=== PATIENT | female | born 1930 | race Caucasian/White ===

== ENCOUNTER 2017-02-23 07:48 | Inpatient (IN) | payer MEDICARE, MEDICAID ==
[~2017-02-23] VITALS: Ht 167.6 cm; Wt 104.8 kg
[~2017-02-23 07:48] MED LIST: CHOL100018 PO; DOCU100C PO; GABA300C10 PO; HYDR-3307 PO; IBUP200T5 PO; OXYB10TA6 PO
[2017-02-23] MEDS ORDERED: SODIUM CHLORIDE 0.9% 1,000ML IVBOLUS ONE (08:30)
[2017-02-23] MEDS ORDERED: SODIUM CHLORIDE FLUSH 10ML SYR IVF ONE (08:30)
[2017-02-23 08:55] LABS: BLOOD UREA NITROGEN 15 mg/dL (7-18)
[2017-02-23 08:59] LABS: ASPARTATE AMINO TRANSFERASE 12 U/L (15-37)
[2017-02-23] MEDS ORDERED: SODIUM CHLORIDE FLUSH 10ML SYR IVF PRN (11:30)
[2017-02-23] MEDS ORDERED: ONDANSETRON ODT 4 MG PO PRN (12:00)
[2017-02-23] MEDS ORDERED: ONDANSETRON 2MG/ML, 2ML IVP PRN (12:00)
[2017-02-23] MEDS ORDERED: LABETALOL 5MG/ML, 20ML IV PRN (12:00)
[2017-02-23] MEDS: ENOXAPARIN 40 MG/0.4 ML SQ SCH (12:00)
[2017-02-23] MEDS ORDERED: POLYETHYLENE GLYCOL 17 GM PACKET PO PRN (12:00)
[2017-02-23 13:47] VITALS: BP 94/59
[2017-02-23] MEDS: SODIUM CHLORIDE 0.9% 1,000 ML IV SCH ×2 (14:24→23:34)
[2017-02-23 19:42] VITALS: BP 102/64
[2017-02-23] MEDS: HYDROcodone/APAP 5/325 TABLET PO PRN (23:43)
[2017-02-24 01:34] VITALS: BP 96/58
[2017-02-24 05:34] LABS: BLOOD UREA NITROGEN 11 mg/dL (7-18)
[2017-02-24 05:37] LABS: ASPARTATE AMINO TRANSFERASE 12 U/L (15-37)
[2017-02-24 06:35] VITALS: BP 108/68
[2017-02-24] MEDS: GABAPENTIN 300 MG CAPSULE PO SCH (08:24)
[2017-02-24] MEDS: PANTOPRAZOLE 40 MG IV IVP SCH (08:24)
[2017-02-24] MEDS: SENNA/DOCUSATE TABLET PO SCH (08:24)
[2017-02-24] MEDS: CHOLECALCIFEROL 400 UNITS TABLET PO SCH (08:25)
[2017-02-24] MEDS: SODIUM CHLORIDE 0.9% 1,000 ML IV SCH ×2 (08:25→17:31)
[2017-02-24] MEDS: ENOXAPARIN 40 MG/0.4 ML SQ SCH (12:14)
[2017-02-24 14:24] VITALS: BP 120/73
[2017-02-24] MEDS: HYDROcodone/APAP 5/325 TABLET PO PRN (17:31)
[2017-02-24 19:21] VITALS: BP 124/76
[2017-02-25 01:40] VITALS: BP 119/70
[2017-02-25] MEDS: SODIUM CHLORIDE 0.9% 1,000 ML IV SCH ×2 (05:40→14:35)
[2017-02-25 06:13] LABS: ASPARTATE AMINO TRANSFERASE 11 U/L (15-37); BLOOD UREA NITROGEN 8 mg/dL (7-18)
[2017-02-25 08:46] VITALS: BP 124/74
[2017-02-25] MEDS: PANTOPRAZOLE 40 MG IV IVP SCH (09:25)
[2017-02-25] MEDS: CHOLECALCIFEROL 400 UNITS TABLET PO SCH (09:25)
[2017-02-25] MEDS: GABAPENTIN 300 MG CAPSULE PO SCH (09:25)
[2017-02-25] MEDS: SENNA/DOCUSATE TABLET PO SCH (09:26)
[2017-02-25] MEDS: ENOXAPARIN 40 MG/0.4 ML SQ SCH (12:25)
[2017-02-25 12:38] LABS: IS PT STATUS REG ER OR PRE ER? NO
[2017-02-25 14:15] VITALS: BP 118/63
[2017-02-25] MEDS: HYDROcodone/APAP 5/325 TABLET PO PRN (17:10)
[2017-02-25 18:33] VITALS: BP 136/72
[2017-02-26] MEDS: SODIUM CHLORIDE 0.9% 1,000 ML IV SCH ×2 (00:21→11:00)
[2017-02-26 01:44] VITALS: BP 152/71
[2017-02-26 05:58] LABS: ASPARTATE AMINO TRANSFERASE 12 U/L (15-37); BLOOD UREA NITROGEN 6 mg/dL (7-18)
[2017-02-26 07:07] VITALS: BP 161/73
[2017-02-26] MEDS: CHOLECALCIFEROL 400 UNITS TABLET PO SCH (09:09)
[2017-02-26] MEDS: GABAPENTIN 300 MG CAPSULE PO SCH (09:09)
[2017-02-26] MEDS: SENNA/DOCUSATE TABLET PO SCH (09:09)
[2017-02-26] MEDS: PANTOPRAZOLE 40 MG IV IVP SCH (09:10)
[2017-02-26] MEDS: ENOXAPARIN 40 MG/0.4 ML SQ SCH (12:04)
== END 2017-02-26 12:34 | disposition home or self-care (01) | DRG 640 ==
LOC: ED 11:25 → EDIP 11:52 → 4WST 13:30 → DCLOUNGE 02-26 12:15
PROVIDERS: ADMIT Hospitalist; ATTEND Hospitalist
PROC: 0T9B70Z Drainage of Bladder with Drainage Device, Via Natural or Artificial Opening (ICD-10-PCS; principal; 2017-02-23)
DX: E87.1 Hypo-osmolality and hyponatremia (principal); E43 Unspecified severe protein-calorie malnutrition; E86.1 Hypovolemia; D64.9 Anemia, unspecified; Z68.37 Body mass index [BMI] 37.0-37.9, adult; J45.909 Unspecified asthma, uncomplicated; M19.90 Unspecified osteoarthritis, unspecified site; R62.7 Adult failure to thrive; W18.30XA Fall on same level, unspecified, initial encounter; Z87.891 Personal history of nicotine dependence; Z90.710 Acquired absence of both cervix and uterus; Z90.49 Acquired absence of other specified parts of digestive tract
CPT/HCPCS: 36415; 70450; 71010; 72190; 80053; 80061; 81003; 82140; 82607; 82746; 83605; 83735; 84439; 84443; 84484; 85025; 87040; 93005; 93970; 96360; 96361; J1650; C9113; J7030

== ENCOUNTER 2019-02-10 15:09 | Emergency (ER) | payer MEDICARE, MEDICAID ==
[~2019-02-10] VITALS: Ht 167.6 cm; Wt 89.0 kg
[~2019-02-10 15:09] MED LIST changes: +CHOL100012 PO; -CHOL100018 PO; +DOCU-180 PO; -DOCU100C PO; +IBUP-1484 PO; -IBUP200T5 PO
--- NOTE | 2019-02-10 15:27 | NUR ---
BIB [facility], SEE TRIAGE NOTE. PT PLACED ON BP CUFF, PULSE OX. MED STUDENT IN TO ASSESS. CALL LIGHT WITHIN REACH.
[2019-02-10 15:51] LABS: BASOPHILS # (AUTO) 0.04 x10^3/uL (0-0.1); BASOPHILS % (AUTO) 1 % (0-1); EOSINOPHILS # (AUTO) 0.23 x10^3/uL (0-0.4); EOSINOPHILS % (AUTO) 4 % (1-7); LYMPHOCYTES # (AUTO) 1.88 x10^3/uL (1-3.4); LYMPHOCYTES % (AUTO) 33 % (22-44); MD NO; MEAN CORPUSCULAR HEMOGLOBIN 25.2 pg (27.0-34.8); MEAN CORPUSCULAR HGB CONC 32.9 g/dL (32.4-35.8); MEAN CORPUSCULAR VOLUME 76.6 fL (80-100); MEAN PLATELET VOLUME 7.1 fL (7.4-10.4); MONOCYTES # (AUTO) 0.54 x10^3/uL (0.2-0.8); MONOCYTES % (AUTO) 10 % (2-9); NEUTROPHILS # (AUTO) 2.98 x10^3/uL (1.8-6.8); NEUTROPHILS % (AUTO) 53 % (42-75); PLATELET COUNT 248 x10^3/uL (130-400); RED CELL DISTRIBUTION WIDTH 17.5 % (9.6-15.2)
[2019-02-10 15:56] LABS: INTERNATIONAL NORMALIZED RATIO 1.06 (0.93-1.1); PROTHROMBIN TIME 11.1 Seconds (9.6-11.5)
[2019-02-10 15:58] LABS: ANION GAP 6 mmol/L (5-15); CALCIUM 8.9 mg/dL (8.5-10.1); CHLORIDE 108 mmol/L (98-107)
[2019-02-10 16:03] LABS: ALANINE AMINOTRANSFERASE 10 U/L (12-78); ALKALINE PHOSPHATASE 66 U/L (45-117); BILIRUBIN,TOTAL 0.5 mg/dL (0.2-1.0); TOTAL PROTEIN 7.9 g/dL (6.4-8.2)
--- NOTE | 2019-02-10 16:17 | NUR ---
ST CATH FOR URINE SPECIMEN. NOTED MOISTURE AND YEAST TO PERIAREA-WORSE ON LEFT SIDE. UNDERPANTS KEPT OFF, ERP NOTIFIED.
[2019-02-10 16:25] LABS: CULTURE INDICATED? YES; MICROSCOPIC INDICATED
[2019-02-10] MEDS ORDERED: NYSTATIN TOPICAL POWDER 15GM TP PRN (17:00)
--- NOTE | 2019-02-10 17:36 | NUR ---
DISPO CHANGED FROM ADMIT TO DC HOME. THROUGHPUT RN NOTIFIED OF NEED FOR [facility] FOR TRANSPORT HOME.
--- NOTE | 2019-02-10 18:20 | NUR ---
CONTINUE TO AWAIT TRANSPORT BY [facility]. PT SLEEPING INTERMITTENTLY, NAD. CALL LIGHT WITHIN REACH.
--- NOTE | 2019-02-10 18:35 | NUR ---
PT GIVEN DISCHARGE INSTRUCTIONS, PAPERWORK PLACE IN PT'S PURSE.
[2019-02-10 18:44] VITALS: BP 120/56
== END 2019-02-10 18:48 | disposition home or self-care (01) ==
LOC: ED 18:42
DX: L03.116 Cellulitis of left lower limb (principal); B37.9 Candidiasis, unspecified
CPT/HCPCS: 36415; 71045; 80053; 81001; 83605; 83690; 85025; 85610; 87086; 93005; 99284